=== PATIENT | male | born 1980 | race Hispanic/Latino ===

== ENCOUNTER 2025-05-16 14:08 | Emergency (ER) | payer BC ==
[~2025-05-16] VITALS: Ht 180.3 cm; Wt 117.9 kg
[2025-05-16 14:58] VITALS: TEMP 97.7
[2025-05-16 18:00] VITALS: RESP 16
[2025-05-16 19:00] VITALS: PULSE 77
[2025-05-16 19:09] VITALS: BP 144/100; O2SAT 99
== END 2025-05-16 19:06 | disposition home or self-care (01) ==
LOC: ER 15:03
DX: R07.81 Pleurodynia (principal); W18.39XA Other fall on same level, initial encounter; Y93.01 Activity, walking, marching and hiking; Y92.89 Other specified places as the place of occurrence of the external cause; I12.0 Hypertensive chronic kidney disease with stage 5 chronic kidney disease or end stage renal disease; E11.22 Type 2 diabetes mellitus with diabetic chronic kidney disease; N18.6 End stage renal disease; F17.210 Nicotine dependence, cigarettes, uncomplicated
CPT/HCPCS: 71250; 99283